=== PATIENT | female | born 1945 ===

== ENCOUNTER 2024-09-28 10:43 | Day surgery (SDC) | payer MEDICARE ==
[~2024-09-28] VITALS: Ht 162.6 cm; Wt 107.4 kg
[~2024-09-28 10:43] MED LIST: Balanced Salt Epinephrine Irrigation Solution 500 mL IR SCH; Diazepam 5 MG Tab PO PRN; Diazepam 5 MG Tab PO SCH; Lidocaine HCl/Pf 1% 5 ML VIAL XX SCH; Midazolam HCl 1MG / ML 2ML Vial ONE; Moxifloxacin HCL 0.5 MG/0.1 ML 0.4MLSYR RIGHTEYE SCH; NS 500 ML IV ONE; Ondansetron 4 MG SoluTab MM PRN; PHENYLEPHRINE\\TROPICAMIDE\\TETRACAINE OPHTHALMIC DILATING SOLN RIGHTEYE PRN; Povidone-Iodine 450 DROP/30 ML Solution ONE; Povidone-Iodine 450 DROP/30 ML Solution RIGHTEYE SCH; Tetracaine HCl/Pf 0.5% Opth Soln 4 ml ONE
[2024-09-28] MEDS ORDERED: Aspir 8181 MG PO (10:57)
[2024-09-28] MEDS ORDERED: CARV6.25 PO (10:57)
[2024-09-28] MEDS ORDERED: METF500 PO (10:58)
[2024-09-28] MEDS ORDERED: JARDIANCE10 MG PO (10:58)
[2024-09-28] MEDS ORDERED: VALS80 PO (10:58)
[2024-09-28] MEDS ORDERED: Dyazide 37.5/251 EA PO (11:01)
[2024-09-28] MEDS ORDERED: NS 500 ML IV ONE (11:14)
[2024-09-28 12:16] VITALS: BP 170/84
== END 2024-09-28 12:40 | disposition home or self-care (01) ==
LOC: ORSCSDS 10:43
PROVIDERS: Student in an Organized Health Care Education/Training Program
PROC: 08RJ3JZ Replacement of Right Lens with Synthetic Substitute, Percutaneous Approach (ICD-10-PCS; principal; 2024-09-28 12:00)
DX: E11.36 Type 2 diabetes mellitus with diabetic cataract (principal); H25.813 Combined forms of age-related cataract, bilateral; I10 Essential (primary) hypertension; E66.9 Obesity, unspecified; Z68.41 Body mass index [BMI] 40.0-44.9, adult; Z79.82 Long term (current) use of aspirin; Z79.4 Long term (current) use of insulin; Z79.84 Long term (current) use of oral hypoglycemic drugs; Z79.899 Other long term (current) drug therapy
CPT/HCPCS: 82947; J2250; J7040; V2632

== ENCOUNTER 2024-10-12 10:35 | Day surgery (SDC) | payer MEDICARE ==
[~2024-10-12] VITALS: Ht 160 cm; Wt 108.0 kg
[~2024-10-12 10:35] MED LIST changes: +Aspir 8181 MG PO; +CARV6.25 PO; -Diazepam 5 MG Tab PO PRN; -Diazepam 5 MG Tab PO SCH; +Dyazide 37.5/251 EA PO; +JARDIANCE10 MG PO; +METF500 PO; -Midazolam HCl 1MG / ML 2ML Vial ONE; +Moxifloxacin HCL 0.5 MG/0.1 ML 0.4MLSYR LEFTEYE SCH; -Moxifloxacin HCL 0.5 MG/0.1 ML 0.4MLSYR RIGHTEYE SCH; -Ondansetron 4 MG SoluTab MM PRN; +PHENYLEPHRINE\\TROPICAMIDE\\TETRACAINE OPHTHALMIC DILATING SOLN LEFTEYE PRN; -PHENYLEPHRINE\\TROPICAMIDE\\TETRACAINE OPHTHALMIC DILATING SOLN RIGHTEYE PRN; +Povidone-Iodine 450 DROP/30 ML Solution LEFTEYE SCH; -Povidone-Iodine 450 DROP/30 ML Solution RIGHTEYE SCH; +VALS80 PO
[2024-10-12] MEDS ORDERED: FentaNYL Citrate 50 MCG/ML 2 ML Injection ONE (11:05)
[2024-10-12] MEDS ORDERED: Midazolam HCl 1MG / ML 2ML Vial ONE (11:05)
[2024-10-12] MEDS ORDERED: NS 500 ML IV ONE (11:16)
[2024-10-12] MEDS ORDERED: Tetracaine HCl 0.5% Opth Soln 15 ml LEFTEYE ONE (11:20)
[2024-10-12 11:39] VITALS: BP 180/80
--- NOTE | 2024-10-12 12:02 | NUR ---
10/12/24 1202 AYDEN OSEGUERA PT C/O "SAND IN EYE" FEELING. FLUSHED OP SITE, OS STERILE SALINE. PT STATES FEELING MUCH BETTER.
== END 2024-10-12 12:03 | disposition home or self-care (01) ==
LOC: ORSCSDS 10:35
PROVIDERS: Student in an Organized Health Care Education/Training Program
PROC: 08RK3JZ Replacement of Left Lens with Synthetic Substitute, Percutaneous Approach (ICD-10-PCS; principal; 2024-10-12 12:00)
DX: E11.36 Type 2 diabetes mellitus with diabetic cataract (principal); H25.812 Combined forms of age-related cataract, left eye; Z96.1 Presence of intraocular lens; I10 Essential (primary) hypertension; E66.9 Obesity, unspecified; Z68.41 Body mass index [BMI] 40.0-44.9, adult; Z79.82 Long term (current) use of aspirin; Z79.84 Long term (current) use of oral hypoglycemic drugs; Z79.899 Other long term (current) drug therapy
CPT/HCPCS: 82947; J2250; J3010; J7040; V2632